=== PATIENT | male | born 1955 | race Caucasian/White ===

== ENCOUNTER 2019-08-06 10:53 | Inpatient (IN) | payer OTHER ==
[~2019-08-06] VITALS: Ht 180.3 cm; Wt 88.9 kg
[~2019-08-06 10:53] MED LIST: ASPIR 8181 MG PO; BRILINTA90 MG PO; CARVEDILOL3.125 MG PO; CENTRUM SILVER1 EAC4 PO; IRON325; LASIX 40 MG TAB40 M2 PO; MIDODRINE HCL 55 M1 PO; NITROGLYCERIN0.4 MG SUBLING; NORCO 5-325 TA1 EACH PO; OXYGEN MISCELL; PREDNISONE 10 M10 M1 PO; PROTONIX40 M1 PO; RITUXAN100 MG/10 IV; SORINE 80 MG TA80 M1 PO; SYMBICORT160 MCG/4. INH; SYNTHROID112 MC1 PO; VENTOLIN HFA 1818 GM INH; VIAGRA50 MG PO; VITAMIN D35000 UNIT PO
[2019-08-06 12:16] VITALS: BP 115/69
[2019-08-06 13:49] LABS: ABSOLUTE NEUTROPHILS 4.3 thou/uL (1.4-8.2); EOSINOPHILS 4.5 % (0.0-3.0); HEMATOCRIT 43.2 % (42.0-52.0); HEMOGLOBIN 14.5 gm/dL (14.0-18.0); LYMPHOCYTES 19.6 % (24.0-44.0); MCH 30.8 pg (26.0-34.0); MCHC 33.7 g/dL (28.0-37.0); MCV 91.6 fL (80.0-100.0); MONOCYTES 5.9 % (1.0-8.0); PLATELET COUNT 148 thou/uL (150-400); RBC 4.71 mil/uL (4.50-6.00); WBC 6.3 thou/uL (4.0-11.0)
[2019-08-06 13:58] LABS: CALCIUM 9.6 mg/dL (8.5-10.1); CREATININE 1.1 mg/dL (0.7-1.3); POTASSIUM 4.5 mmol/L (3.5-5.1)
[2019-08-06 14:01] LABS: APTT 34.1 Seconds (24.5-32.8); PROTIME 10.7 Seconds (9.3-11.4)
[2019-08-06 14:04] LABS: ALBUMIN 3.5 g/dL (3.4-5.0); TOTAL BILIRUBIN 0.5 mg/dL (<0.1-1.0); TOTAL PROTEIN 6.4 g/dL (6.4-8.2)
--- NOTE | 2019-08-06 16:09 | 2DMMODE ---
[facility] [address] [address] 2 D/M-MODE ECHOCARDIOGRAM Name: CEE LING Room #: 213-P ADM IN ..#: [id number] Admission: 08/06/19 Attend Phys: Sergio Fields MD Discharge: Date of : 57 Date of Service: 08/06/19 1609 Report #: [id number] THIS REPORT FOR: //name// ADDENDUM APPROVED REPORT Study performed: 08/06/2019 14:42:36 EXAM: Comprehensive 2D, Doppler, and color-flow Echocardiogram Patient Location: Bedside Room #: 213 Status: routine BSA: 2.10 HR: 56 bpm BP: 120/60 mmHg Rhythm: NSR/PVCs Other Information Study Quality: Adequate Indications CAD, Cardiomyopathy. 2D Dimensions RVDd: 37.90 mm IVSd: 9.42 (7-11mm) LVOT Diam: 25.63 (18-24mm) LVDd: 61.51 mm PWd: 9.79 (7-11mm) Ascending Ao: 37.23 (22-36mm) LVDs: 53.23 (25-40mm) Aortic Root: 46.44 mm Volumes Left Atrial Volume (Systole) Single Plane 4CH: 64.26 mL Single Plane 2CH: 53.50 mL LA ESV Index: 34.00 mL/m2 Aortic Valve AoV Peak Micah.: 1.69 m/s AO Peak Gr.: 11.41 mmHg LVOT Max P.34 mmHg LVOT Max V: 0.77 m/s LIVIER Vmax: 2.34 cm2 Mitral Valve E/A Ratio: 0.8 MV Decel. Time: 433.62 ms MV E Max Micah.: 0.50 m/s [facility] [place] [address] [place] [address] 2 D/M-MODE ECHOCARDIOGRAM Name: ANURADHACEE ELIZABETH Room #: [facility] IN [facility].#: [id number] Admission: 08/06/19 Attend Phys: Sergio Fields MD Discharge: Date of : 57 Date of Service: 08/06/19 1609 Report #: [id number] MV A Micah.: 0.66 m/s MV PHT: 125.75 ms IVRT: 143.02 ms Pulmonary Valve PV Peak Micah.: 0.50 m/s PV Peak Gr.: 1.00 mmHg Pulmonary Vein P Vein S: 0.43 m/s P Vein A: 0.25 m/s P Vein D: 0.34 m/s P Vein A Dur.: 115.3 msec P Vein S/D Ratio: 1.26 Tricuspid Valve TR Peak Micah.: 2.49 m/s RAP Estimate: 5.00 mmHg TR Peak Gr.: 24.85 mmHg PA Pressure: 30.00 mmHg Left Ventricle Left ventricle is moderately dilated. There is global hypokinesis of the left ventricle. There is normal left ventricular wall thickness. Left ventricular systolic function is moderate to severely decreased. LVEF is 30-35%. Severe hypokinesis of the base of the inferior wall and base of the septum. Mild diastolic dysfunction is present (impaired relaxation pattern). Right Ventricle The right ventricle is normal size. The right ventricular systolic function is normal. Atria Left atrium is at the upper limits of normal. The atrial septum is aneurysmal. Right atrium is at the upper limits of normal. Aortic Valve The aortic valve is mildly sclerotic Moderate aortic regurgitation. There is no aortic valvular stenosis. Mitral Valve The mitral valve is normal in structure. Trace mitral regurgitation. Tricuspid Valve The tricuspid valve is normal in structure. Mild to moderate tricuspid regurgitation. Estimated PAP is 30-35mmHg. Pulmonic Valve [address] [address] 2 D/M-MODE ECHOCARDIOGRAM Name: CEE LING Room #: 213-P [facility] IN ..#: [id number] Admission: 08/06/19 Attend Phys: Sergio Fields MD Discharge: Date of : 57 Date of Service: 08/06/19 1609 Report #: [id number] The pulmonary valve is normal in structure. Trace pulmonic regurgitation. Great Vessels Aortic root is moderately dilated at 4.6cm. The ascending aorta is normal in size. IVC is normal in size and collapses >50% with inspiration. Pericardium There is no pericardial effusion. <Conclusion> Left ventricular systolic function is moderate to severely decreased. There is global hypokinesis of the left ventricle. LVEF is 30-35%. Severe hypokinesis of the base of the inferior wall and base of the septum. Mild diastolic dysfunction. Atrial septal aneurysm The aortic valve is mildly sclerotic. Moderate aortic regurgitation. The mitral valve is normal in structure. Trace mitral regurgitation. Mild to moderate tricuspid regurgitation. Estimated pulmonary artery pressure of 30-35mmHg. There is no pericardial effusion. <ELECTRONICALLY SIGNED> By: Reece Mccray MD, FACC 08/06/19 1609 1609 1609 Reece Mccray MD, FACC /INF
[2019-08-06 17:35] VITALS: BP 103/62
--- NOTE | 2019-08-06 18:27 | NUR ---
PT TRANSFERED FROM [facility] THIS AFTERNOON. PT TO SEE DR PRINCE FOR CABG. PT TO THE UNIT - ORIENTED TO ROOM AND BEDSPACE. ASSESSMENT CHARTED - MEDS PER JAN - PT HAS HD PFT'S - ECHO AND LAB COMPLETED. POST PFT IT WAS DECISED THAT PATIET WOULD NOT HAVE OPEN HEART TOMORROW - DR SEGOVIA AND JAZ CONSULTED, DR SEGOVIA TO DO PROCEDURE ON TUESDAY IN LABOR STANDARDS DIRECTOR. HEPARIN DRIP CONTINUES ORDERED.MRSA SWAB SNET TO LAB. ACCUCHECK CHARTED - NO CO'S OF PAIN OR NASUEA. RODRICK DIET AND FLUIDS. NO CO'S AT THE PRESENT TIME.
[2019-08-06 21:17] LABS: URINE BILIRUBIN NEGATIVE (Negative); URINE BLOOD TRACE (Negative); URINE CLARITY CLEAR; URINE COLOR YELLOW; URINE GLUCOSE-RANDOM* NEGATIVE (Negative); URINE KETONES NEGATIVE (Negative); URINE LEUKOCYTES-REFLEX NEGATIVE (Negative); URINE NITRITE-REFLEX NEGATIVE (Negative); URINE PROTEIN (DIPSTICK) NEGATIVE (Negative); URINE SPECIFIC GRAVITY <= 1.005 (1.005-1.035)
[2019-08-06 22:27] VITALS: BP 101/56
[2019-08-07 01:10] LABS: GLYCOHEMOGLOBIN (HGB A1C) 5.2 % (4.8-5.6)
--- NOTE | 2019-08-07 04:31 | NUR ---
RECEIVED PT'S CARE AT 1910; AOX4; ON BED; DURING ASSESSMENT C/O PAIN; PRN PAIN MEDICATION GIVEN; APPT NOT THERAPEUTIC; CHECK CHARTING; HEPARIN BOLUS GIVEN & GTT ADJUSTED; REFUSED MIRALAX; REFUSED SCDs; MONITORING; ASSESSMENT CHARGED; FOLLOWING POC; WILL PASS ON REPORT.
[2019-08-07 09:00] VITALS: BP 124/72
[2019-08-07 10:20] LABS: CHOLESTEROL 125 mg/dL (<200); HDL CHOLESTEROL 31 mg/dL (>40); LDL CHOLESTEROL 79 mg/dL (<100); TRIGLYCERIDE 79 mg/dL (<150); VLDL 16 mg/dL (<40)
[2019-08-07 12:34] VITALS: BP 98/55
--- NOTE | 2019-08-07 14:12 | EKG ---
[address] [address] ELECTROCARDIOGRAM REPORT Name: LINO LINGCHANTELLE JOHNSON Room #: 213-P ADM IN M.R.#: [id number] Admission: 08/06/19 Attend Phys: Sergio Fields MD Discharge: Date of : 57 Report #: [id number] THIS REPORT FOR: //name// [facility] Test Date: 2019-08-07 Test Time: 07:06:39 Pat Name: CEE LING Department: Room: 213 P Gender: M Dobie Worker: ARINA : 1955 Requested By: Addy Blancas Order Number: [id number] MD: Norbreto Marquez Measurements Intervals [place] Rate: 58 P: 47 [place]: 174 QRS: -3 QRSD: 111 T: 3 QT: 460 QTc: 452 Interpretive Statements Sinus rhythm Ventricular premature complex Borderline low voltage, extremity leads No previous ECG available for comparison Electronically Signed On 08-07-2019 14:12:43 CDT by Norberto Marquez [email or web address] <ELECTRONICALLY SIGNED> By: Norberto Marquez MD 08/07/19 1412 D: [id number] 5 Norberto Marquez MD /NAEEM
[2019-08-07 16:55] VITALS: BP 95/60
--- NOTE | 2019-08-07 18:42 | NUR ---
ASSUMED CARE AT SHIFT CHANGE, ALERT AND ORIENTED X4 AND FORGETFULL. VSS AND AFEBRILE. NSR, REMAINS ON HEPARIN GTT, AND APTT @ 54, NO CHANGE MADE. NPO MN POSSIBLE ANGIOPLASTY TOMM WITH DR SEGOVIA. AD WILL CONTINUE WITH POC.
[2019-08-07 20:25] VITALS: BP 89/56
[2019-08-07 21:01] VITALS: BP 107/59
[2019-08-08] VITALS (12 sets, daily range): BP systolic 101–119; BP diastolic 58–73
--- NOTE | 2019-08-08 04:49 | NUR ---
RECEIVED PT'S CARE AT 1920; PT. ON CHAIR; AOX4; DURING ASSESSMENT NO C/O PAIN; EDUCATED ABOUT NPO AFTER MIDNIGHT; ST. UNDERSTANDING; HS MEDICATION GIVEN; PRE CATH CLEANING PERFORMED; SR OVER THE NIGHT; MONITORING; ASSESSMENT CHARGED; FOLLOWING POC; WILL PASS ON REPORT.
[2019-08-08 06:02] LABS: HEMATOCRIT 41.8 % (42.0-52.0); MCH 30.8 pg (26.0-34.0); MCHC 33.5 g/dL (28.0-37.0); MCV 91.9 fL (80.0-100.0); RBC 4.55 mil/uL (4.50-6.00); RDW 13.9 % (10.5-14.5)
[2019-08-08 06:15] LABS: CALCIUM 9.3 mg/dL (8.5-10.1); POTASSIUM 4.2 mmol/L (3.5-5.1)
--- NOTE | 2019-08-08 14:43 | NUR ---
met with patient who transferred to [facility] from [facility] with unstable angina. Patient resides at home with family. All needs on one level. 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 PCP Dr Jeffrey in [place]. [facility]gt following for dc planning.
--- NOTE | 2019-08-08 15:57 | NUR ---
ASSESMENT DOCUMENTED, BACK FROM CATH AT 1350, SEE POST CARDIAC CATH INTERVENTIONS. SR, VSS AND DENIES ANY DISCOMFORT. FAMILY AT BEDSIDE. RT GRION SITE D/C/I.
--- NOTE | 2019-08-08 16:32 | EKG ---
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 : 1955 Requested By: Sánchez Fuentes Order Number: [id number] MD: Norberto Marquez Measurements Intervals [place] Rate: 64 P: 37 [place]: 178 QRS: 1 QRSD: 110 T: -5 QT: 450 QTc: 465 Interpretive Statements Sinus rhythm Borderline low voltage, extremity leads Compared to ECG 08/07/2019 07:06:39 Ventricular premature complex(es) no longer present Electronically Signed On 08-08-2019 16:32:26 CDT by Norberto Marquez [email or web address] <ELECTRONICALLY SIGNED> By: Norberto Marquez MD 08/08/19 1632 1433 1433 Norberto Marquez MD /EPI
--- NOTE | 2019-08-08 17:12 | CATHLAB ---
[facility] [address] [place] [address] INVASIVE PROCEDURE REPORT Name: CEE LING Room #: 213-P ADM IN ..#: [id number] Admission: 08/06/19 Attend Phys: Sergio Fields MD Discharge: Date of : 57 Report #: [id number] THIS REPORT FOR: //name// APPROVED REPORT Study performed: 08/08/2019 11:04:29 Patient Details Patient Status: In-Patient Room #: The patient is a 63 year-old male Event Personnel Sánchez Fuentes Systems Integrator, Bryson Rodriguez RN RN, Dhruv Rivas RTR Scrub, Ana Mendoza RTR, OFFLINE EDITOR Scrub, Steven Dixon Monitor Procedures Performed 16254 Initial Mod Sed Same Phys/QHP Gr5y 154947 30195 Mod Sed Same Phys/QHP Ea 353258 FREEMAN w/Atherectomy Single CIRC C9602 DESATH FREEMAN w/Atherectomy Single LAD C9602 DESATH Hemostasis w/ Mynx Indication Unstable angina , The patient presented with unstable angina to [facility], undergoing cardiac catheterization. He was found to have a severe bifurcating stenosis involving the distal left main artery, LAD and left circumflex artery. He was transferred to [facility] for CV surgical consultation. He was found to have pulmonary fibrosis on chronic oxygen therapy and deemed not a suitable candidate for surgery. He presents for a high risk angioplasty involving the left main bifurcation. Risk Factors Chronic Lung DiseaseHypercholesterolemia, Coronary Artery DiseaseHypertension Previous Procedures/Diagnoses Previous PCI, Previous UT Procedure Narrative The Right Groin^ was infiltrated with 1% Lidocaine subcutaneous anesthesia. A PINNACLE 7FR Sheath #[id number] sheath was inserted into the RFA^. Coronary angiography was performed using coronary diagnostic catheters. The right coronary system was accessed and visualized with a 7f xb 3.5 guide catheter. There was no [facility] [place] [place] [address] INVASIVE PROCEDURE REPORT Name: CEE LING ELIZABETH Room #: 213-P [facility] IN [facility]#: [id number] Admission: 08/06/19 Attend Phys: Sergio Fields MD Discharge: Date of : 57 Report #: [id number] hematoma. Intraoperative Conscious Sedation Sedation start time: 1130 Case end Time: 1330 Fentanyl 100 mcg Versed 2 mg Fluoro Time: 30.59 minutes Dose: DAP 76285.30 cGycm2 4810 mGy Contrast Type and Amount: Omnipaque 375 ml Diagnostic Cath Left Main Severe distal left main stenosis at the bifurcation involving the ostium of the left circumflex artery and LAD. Hemodynamics The aortic pressure is 125/68 mmHg with a mean of 89 mmHg. PCI Technique Lesion Percutaneous coronary intervention was performed on the ostial/proximal circumflex artery segment. The lesion stenosis prior to intervention was 90% with DOROTHEA 3 flow. A 7F 3.5 XB Guide Catheter was used to engage the cirx ostium. A luge .014 wire Interventional Guidewire was used to cross the lesion. BALLOON DILATION A Balloon catheter Euphora RX 2.75 x 12 #[id number] was inserted and inflated up to 14.00atm for 10 delores for 21seconds. Additional Inflation: 8atm for 8seconds. Additional Inflation: 10atm for 5seconds. STENT DEPLOYMENT A stent RESOLUTE GISELA RX 2.75 X 12 #[id number] was inserted and inflated up to 14atm for 13seconds. Additional Inflation: 14atm for 7seconds. POST STENT DEPLOYMENT BALLOON DILATION Additional Inflation: 16atm for 18seconds. COMMENTS Laser atherectomy was initially performed prior to balloon angioplasty. 3 passes at 50 Fluence 40 rate, 2 passes at 60 fluence 40 rate. PCI Technique Lesion 2 [facility] [address] [place] [address] INVASIVE PROCEDURE REPORT Name: CEE LING Room #: 213-P [facility]#: [id number] Admission: 08/06/19 Attend Phys: Sergio Fields MD Discharge: Date of : 57 Report #: [id number] Percutaneous Coronary Intervention was performed on the distal left main extending into the proximal LAD. The lesion stenosis prior to intervention was 70% with DOROTHEA 3 flow. A VISTA 7FR XB 3.5 Guide Catheter was used to engage the LCA ostium. A Luge Interventional Guidewire was used to cross the lesion. Balloon Dilation A Balloon catheter Euphora RX 2.75 x 12 #[id number] was inserted and inflated up to 14atm for 12seconds. Prior to balloon angioplasty, laser atherectomy was performed. 2 passes 50 Fluence at 40 rate. Stent Deployment A drug-eluting stent RESOLUTE GISELA RX 3.0 X 18 #[id number] was inserted and inflated up to 12atm for 15seconds. Additional Inflation: 18atm for 12seconds. Post Stent Deployment Balloon Dilation A Balloon catheter Euphora NC RX 3.5 x 8 #[id number] was inserted and inflated up to 18atm for 15seconds. The proximal edge of the stent in the distal left main artery was postdilated with a 3.5 mm noncompliant balloon. The portion of the stent in the proximal LAD was postdilated with a 3.0 mm noncompliant balloon. Final angiography reveals 0 % stenosis with DOROTHEA 3 flow. Comments 1. Stent placed in the ostial/proximal left circumflex artery. 2. Stent placed in the distal left main extending into the proximal LAD. 3. A whisper wire was used cannulate the left circumflex artery through the stent strut in the left main artery. 4. Final kissing balloon dilatation was performed with a 2.5 mm semi-compliant balloon in the distal left main extending into the left circumflex artery and a 2.75 mm semi-compliant balloon in the distal left main extending into the LAD. PCI Technique Lesion 3 Percutaneous Coronary Intervention was performed on the proximal left anterior descending artery segment. Conclusion 1. Successful laser atherectomy and placement of a drug-eluting stent into the ostial/proximal left circumflex artery. 2. Successful laser atherectomy and placement of a drug-eluting stent into the distal left main extending into the proximal LAD. [facility] [address] [place] [address] INVASIVE PROCEDURE REPORT Name: CEE LING Room #: 213-P [facility] IN .R.#: [id number] Admission: 08/06/19 Attend Phys: Sergio Fields MD Discharge: Date of : 57 Report #: [id number] 3. Final kissing balloon dilatation performed at the distal left main bifurcation. 4. Recommend dual antiplatelet therapy and aggressive risk factor management. <ELECTRONICALLY SIGNED> By: Sánchez Fuentes MD 08/08/191711 11 11 Sánchez Fuentes MD /INF
[2019-08-09] VITALS (7 sets, daily range): BP systolic 88–131; BP diastolic 57–73
--- NOTE | 2019-08-09 05:07 | NUR ---
Assumed pt care at 1900 with compliants of chest pain. Pt is alert and oriented, no family at bedside. Pain med administered for reported chest pain. Pain reassessed, pt stated pain reduced. Assessment completed and completed. Scheduled meds administered to pt. Pt tolerated po intake. Denies any further needs at this time.
[2019-08-09 05:35] LABS: ALBUMIN 3.4 g/dL (3.4-5.0); CALCIUM 9.2 mg/dL (8.5-10.1); CREATININE 0.9 mg/dL (0.7-1.3); POTASSIUM 4.4 mmol/L (3.5-5.1); TOTAL BILIRUBIN 0.7 mg/dL (<0.1-1.0); TOTAL PROTEIN 6.3 g/dL (6.4-8.2)
[2019-08-09 05:38] LABS: HEMATOCRIT 41.7 % (42.0-52.0); MCH 30.9 pg (26.0-34.0); MCHC 33.6 g/dL (28.0-37.0); MCV 91.8 fL (80.0-100.0); RBC 4.55 mil/uL (4.50-6.00); RDW 13.8 % (10.5-14.5); WBC 7.8 thou/uL (4.0-11.0)
--- NOTE | 2019-08-09 07:23 | EKG ---
[address] [place] [address] ELECTROCARDIOGRAM REPORT Name: CEE LING ELIZABETH Room #: 213-P ADM IN M.R.#: [id number] Admission: 08/06/19 Attend Phys: Sergio Fields MD Discharge: Date of : 57 Report #: [id number] THIS REPORT FOR: //name// [facility] Test Date: 2019-08-08 Test Time: 19:39:21 Pat Name: CEE LING Department: Room: 213 P Gender: M Beauty Operator: Ronit BARRERA : 1955 Requested By: Sánchez Fuentes Order Number: [id number] MD: Reece Mccray Measurements Intervals [place] Rate: 79 P: 39 ID: 172 QRS: -8 QRSD: 105 T: -7 QT: 393 QTc: 451 Interpretive Statements Sinus rhythm Ventricular premature complex Inferior infarct, old Compared to ECG 08/08/2019 14:33:46 Ventricular premature complex(es) now present Electronically Signed On 08-09-2019 7:23:17 CDT by Reece Mccray [email or web address] <ELECTRONICALLY SIGNED> By: Reece Mccray MD, [facility] 08/09/19 0723 38 38 Reece Mccray MD, [facility] /EPI
--- NOTE | 2019-08-09 10:29 | NUR ---
PATIENT ALERT AND ORIENTED X4, DENIES ANY CP OR DISCOMFORT ON ASSESMENT ANTONETTE AM. SR AND VSS. RT GRION SITE IS D/C/I. UP WALKING. PLAN TO D/C HOME TODAY.
[2019-08-09] MEDS ORDERED: LIPITOR40 MG PO (15:32)
[2019-08-09] MEDS ORDERED: BRILINTA90 MG PO (15:32)
--- NOTE | 2019-08-09 16:40 | EKG ---
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 : 1955 Requested By: Sánchez Fuentes Order Number: [id number] MD: Norberto Marquez Measurements Intervals [place] Rate: 73 P: 36 [place]: 167 QRS: -7 QRSD: 106 T: 2 QT: 409 QTc: 451 Interpretive Statements Sinus rhythm Inferior infarct, old Compared to ECG 08/08/2019 19:39:21 Ventricular premature complex(es) no longer present Myocardial infarct finding still present Electronically Signed On 08-09-2019 16:40:09 CDT by Norberto Marquez [email or web address] <ELECTRONICALLY SIGNED> By: Norberto Marquez MD 08/09/19 1640 0742 0742 Norberto Marquez MD /EPI
--- NOTE | 2019-08-12 09:32 | HC ---
[facility] [place] [address] CONSULTATION Name: CEE LING Room #: 213-P [facility] IN ..#: [id number] Admission: 08/06/19 Attend Phys: Sergio Fields MD Discharge: 08/09/19 Date of : 57 Report #: [id number] THIS REPORT FOR: //name// CC: Juan Miguel Fields DATE OF SERVICE: 08/06/2019 We were asked by Dr. Pearson to see the patient. The patient is a 63-year-old transferred here from [facility] today. The patient has a history of coronary artery disease and had a stent placement in the past. The patient states he had a myocardial infarct in 2018 and had stent placed when he was in [place], [place] by Dr. Almonte. The patient also has a history of shortness of breath and pulmonary fibrosis and claims he is on oxygen 3 liters, 24/7. The patient moved to this area and was seen by Dr. Godfrey who had scheduled an elective stress test. Prior to that being done, the patient began to have unstable angina and cardiac catheterization was done this weekend. Overall, ejection fraction is reduced with a 35% ejection fraction with inferior hypokinesis. Right coronary is stented and there is no severe disease there, but there is high-grade stenosis in the proximal LAD and circumflex systems with a 50% left main lesion. PAST MEDICAL HISTORY: Also significant for hyperlipidemia, type 2 diabetes, and chronic obstructive pulmonary disease. The patient has had pulmonary function testing in the past, but does not know specific results of these. We note that the patient had a chest CT scan when he was at [facility] and this showed emphysematous changes as well as pulmonary fibrosis in patchy upper lobe predominant pattern. MEDICATIONS AT HOME: Levothyroxine, albuterol, Symbicort, aspirin, vitamin D, pantoprazole, vitamins, nitroglycerin, furosemide, prednisone, carvedilol, rituximab, oxygen. ALLERGIES: PENICILLIN, the patient states he gets hives. The patient states he has had Keflex in the past without problem. SOCIAL HISTORY: Tobacco use. The patient claims he is a former smoker. REVIEW OF SYSTEMS: CONSTITUTIONAL: Denies fever or chills. EYES: Denies visual change. The patient wears glasses. RESPIRATORY: Shortness of breath on exertion. The patient uses oxygen /. CARDIAC: Unstable angina this weekend, brought the patient to the hospital. GASTROINTESTINAL: No nausea, vomiting, abdominal pain. GENITOURINARY: No burning, frequency, or blood. [address] [address] CONSULTATION Name: CEE LING ELIZABETH Room #: 213-P [facility] IN [facility].#: [id number] Admission: 08/06/19 Attend Phys: Sergio Fields MD Discharge: 08/09/19 Date of : 57 Report #: [id number] MUSCULOSKELETAL: No bone or joint pain. SKIN: No rash or infection. NEUROLOGIC: No motor or sensory dysfunction. PHYSICAL EXAMINATION: VITAL SIGNS: Blood pressure 130/70, heart rate 74, respiratory rate 18. HEENT: No scleral icterus, no arcus. The patient is wearing oxygen. NECK: No mass, no bruit. CHEST: No rales or rhonchi, has some fork sounds. HEART: Rhythm regular, no murmur audible. ABDOMEN: Soft, no mass. EXTREMITIES: 2+ right femoral pulse. I do not feel a left femoral pulse. No obvious saphenous vein problems. SKIN: No rash or infection. NEUROLOGIC: No obvious motor or sensory dysfunction. IMPRESSION: The patient has coronary artery disease in the setting of a history of pulmonary fibrosis and chronic oxygen use. I have taken the liberty of ordering full pulmonary function tests. If we feel that the patient is at higher risk for surgery related to his lung issues, then I may ask Cardiology to offer an opinion regarding feasibility of atherectomy and angioplasty. Risks and details of surgery were discussed in general with the patient in the light of the pulmonary disease. Thank you for the consult. <ELECTRONICALLY SIGNED> By: Jc Gil MD 08/12/19 0932 1404 2259 Jc Gil MD /nt
--- NOTE | 2019-08-14 18:45 | PFR/MVV ---
[facility] [place] [address] PULMONARY FUNCTION MVV/REPORT Name: CEE LING Room #: 213-P [facility] IN [facility]#: [id number] Admission: 08/06/19 Attend Phys: Sergio Fields MD Discharge: 08/09/19 Date of : 57 Report #: [id number] THIS REPORT FOR: //name// >> SPIROMETRY: (BTPS) Height: 71.0 in cm Weight: 198 lbs kg Exam Date: 08/06/19 PRE-RX POST-RX PRED BEST %PRED BEST %PRED %CHG FVC LITERS . 4.72 . 3.07 . 65 . 2.97 . 63 . -3 FEV1 LITERS . 3.29 . 2.00 . 61 . 2.05 . 62 . 2 FEV1/FVC % . 70 . 65 . 93 . 69 . 99 . 5 YES56-62% L/Sec . 3.06 . 0.96 . 31 . 1.25 . 41 . 31 PEF L/SEC . 8.78 . 6.19 . 70 . 4.10 . 47 . -34 FEF50/FIF50 UNITLESS . . 0.98 . . 0.98 . . 0 MVV L/Min . 141 . 52 . 37 f 1/Min . . 125 . >> LUNG VOLUMES: (BTPS) PRE-RX POST-RX PRED AVG %PRED AVG %PRED %CHG VC Liters . 4.72 . 3.07 . 65 . . . TLC Liters . 6.87 . 4.10 . 60 . . . RV Liters . 2.47 . 1.03 . 42 . . . RV/TLC % . 38 . 25 . 66 . . . FRC PL Liters . 3.76 . 1.78 . 47 . . . FRC N2 Liters . . . . . . ERV Liters . 1.59 . 0.75 . 47 . . . IC Liters . 3.18 . 2.37 . 74 . . . >> DIFFUSION: DLCO ml/Min/mmHg . 24.5 . 6.0 . 24 . . . DL Mar[place] ml/Min/mmHg . 24.5 . 6.0 . 24 . . . DLCO/VA ml/Min/mmHg . 3.77 . 2.05 . 54 . . . VA Liters . 7.30 . 2.93 . 40 . . . COMMENTS: COMMENTS: >> RESISTANCE: [facility] [address] [place] [address] PULMONARY FUNCTION MVV/REPORT Name: CEE LING ELIZABETH Room #: 213-[facility]#: [id number] Admission: 08/06/19 Attend Phys: Sergio Fields MD Discharge: 08/09/19 Date of : 57 Report #: [id number] PRE-RX PRED AVG %PRED Raw Total cmH20/L/Sec . . 3.30 . Raw Insp cmH20/L/Sec . . 2.14 . Raw Exp cmH20/L/Sec . . 2.91 . Raw cmH20/L/Sec . 1.18 . 2.59 . 220 Gaw L/Sec/cmH20 . 0.902 . 0.386 . 43 sRaw cmH20 Sec . 4.43 . 7.51 . 169 sGaw l/cmH20 Sec . 0.226 . 0.133 . 59 Vtq Liters . . 2.89 . # = OUTSIDE 95% CONFIDENCE INTERVAL CALIBRATION: PRED: 3.00 ACTUAL: EXP 3.01 INSP 3.02 [facility]-OL10-06 [facility]-05 N-1804-4 >> INTERPRETATION/IMPRESSION: CC: Juan Miguel Fields DESCRIPTION OF PROCEDURE: Spirometric examination revealed moderate airflow obstruction. There was no significant bronchodilator response. Lung volumes are mildly reduced with a total lung capacity measuring 60% of predicted. Diffusion capacity is markedly reduced measuring 24% of predicted, remains reduced at 54% of predicted when corrected for alveolar volume. Flow volume loop is consistent with mixed obstructive and restrictive ventilatory defect. IMPRESSION: Mildly severe mixed obstructive and restrictive ventilatory defect. Clinical correlation is recommended. <ELECTRONICALLY SIGNED> By: Franklin Marc MD 08/14/19 1845 Franklin Marc MD /nt
== END 2019-08-09 17:45 | disposition home or self-care (01) | DRG 246 ==
LOC: 2N 10:53 → ENTRNSPT 08-09 17:27 → 2N 08-09 17:45
PROVIDERS: Internal Medicine Cardiovascular Disease; Physician Assistant; ADMIT Hospitalist
PROC: 027135Z Dilation of Coronary Artery, Two Arteries with Two Drug-eluting Intraluminal Devices, Percutaneous Approach (ICD-10-PCS; principal; 2019-08-08)
PROC: B2111ZZ Fluoroscopy of Multiple Coronary Arteries using Low Osmolar Contrast (ICD-10-PCS; principal; 2019-08-08)
PROC: 02C13ZZ Extirpation of Matter from Coronary Artery, Two Arteries, Percutaneous Approach (ICD-10-PCS; principal; 2019-08-08)
PROC: 4A023N7 Measurement of Cardiac Sampling and Pressure, Left Heart, Percutaneous Approach (ICD-10-PCS; principal; 2019-08-08)
DX: I25.110 Atherosclerotic heart disease of native coronary artery with unstable angina pectoris (principal); I50.23 Acute on chronic systolic (congestive) heart failure; J84.9 Interstitial pulmonary disease, unspecified; J96.11 Chronic respiratory failure with hypoxia; E78.5 Hyperlipidemia, unspecified; E11.9 Type 2 diabetes mellitus without complications; J44.9 Chronic obstructive pulmonary disease, unspecified; M06.9 Rheumatoid arthritis, unspecified; M19.90 Unspecified osteoarthritis, unspecified site; M81.0 Age-related osteoporosis without current pathological fracture; E03.9 Hypothyroidism, unspecified; I25.5 Ischemic cardiomyopathy; I35.1 Nonrheumatic aortic (valve) insufficiency; I73.9 Peripheral vascular disease, unspecified; D64.9 Anemia, unspecified; Z88.0 Allergy status to penicillin; Z87.891 Personal history of nicotine dependence; Z95.5 Presence of coronary angioplasty implant and graft; Z88.8 Allergy status to other drugs, medicaments and biological substances; I25.2 Old myocardial infarction; Z82.3 Family history of stroke; Z99.81 Dependence on supplemental oxygen; Z87.442 Personal history of urinary calculi
CPT/HCPCS: 10081